=== PATIENT | female | born 2000 | race Asian ===

== ENCOUNTER 2022-10-01 05:05 | Inpatient (IN) ==
[2022-10-01] MEDS ORDERED: LACTATED RINGER'S 1,000 ML IV PRN (05:11)
[2022-10-01] MEDS ORDERED: LIDOCAINE 1% LOCAL 20 ML VIAL INFIL PRN (05:11)
[2022-10-01] MEDS ORDERED: OXYTOCIN 30 UNITS/500 ML BAG IV PRN ×2 (05:11→07:10)
[2022-10-01] MEDS ORDERED: OXYTOCIN 30 UNITS/500ML NSS IV ONE (05:17)
[2022-10-01 05:52] LABS: Hematocrit (blood only) 34.5 % (37.0-47.0); Hemoglobin 12.1 g/dl (12.0-16.0); Mean Corpuscular Hemoglobin 33.3 pg (25.0-34.0); Mean Corpuscular Hgb Conc 35.1 g/dL (32.0-36.0); Mean Platelet Volume 12.9 fL (9.4-12.4); Platelet Count 145 K/uL (130-400); RDW Coefficient of Variation 14.4 % (11.5-14.5); Red Blood Count 3.63 M/uL (4.20-5.40); White Blood Count 12.37 K/ul (4.8-10.8)
--- NOTE | 2022-10-01 06:44 | Delivery Summary ---
Vaginal Delivery Summary Date of Service October 01, 2022 Vaginal Delivery Summary [facility] Patient is a 22-year-old 2 para 1-0-0-1 female who presents at 39-6/7 weeks in active labor. Upon arrival in labor and delivery she was noted to be an anterior lip with bulging membranes. Membranes were ruptured for clear fluid and the anterior lip was then easily reduced. She had the urge to push and did so effectively over intact perineum for delivery of a viable male . After the head was delivered the rest the infant delivered easily without maternal effort and was placed on the mother's abdomen for further attention and drying. He was vigorous and moving all 4 limbs upon delivery. After cord blood was obtained, the placenta was expressed intact with a three-vessel cord. bleeding was controlled with dilute Pitocin and fundal massage. Perineum was inspected and noted to be intact. Estimated blood loss was 300 cc. Her bladder was catheterized using sterile technique for a small amount of clear dilute urine. Mother and infant were doing well after delivery. [facility] – [place] Vaginal Delivery Charge Delivery Type Details: [facility]
[2022-10-01] MEDS ORDERED: bisacodyL 10 MG SUPP PR PRN (07:10)
[2022-10-01] MEDS ORDERED: IBUPROFEN 600 MG TAB PO PRN (07:10)
[2022-10-01] MEDS ORDERED: ACETAMINOPHEN 325 MG TAB PO PRN (07:10)
[2022-10-01] MEDS ORDERED: HYDROCORTISONE ACETATE 25 MG SUPP PR PRN (07:10)
[2022-10-01] MEDS ORDERED: BENZOCAINE 20% AER SPR 82.5 GM CAN EXT PRN (07:10)
[2022-10-01] MEDS ORDERED: DIPHTHERIA/TETANUS/PERTUSSIS Vaccine (Tdap, Age 7+yrs) 0.5mL SYR/VL IM ONE (07:10)
[2022-10-01] MEDS ORDERED: oxyCODONE/ACETAMINOPHEN 5mg/325mg TAB PO PRN (07:10)
[2022-10-01] MEDS: DOCUSATE SODIUM 100 MG CAP PO SCH ×2 (13:23→19:32)
[2022-10-01] MEDS: PRENATAL VITAMIN 1 TAB PO SCH (13:23)
[2022-10-02 07:02] LABS: Hematocrit (blood only) 32.6 % (37.0-47.0); Hemoglobin 11.4 g/dl (12.0-16.0); Mean Corpuscular Hemoglobin 33.5 pg (25.0-34.0); Mean Corpuscular Volume 95.9 fL (80.0-100.0); Mean Platelet Volume 12.5 fL (9.4-12.4); Platelet Count 134 K/uL (130-400); RDW Coefficient of Variation 14.4 % (11.5-14.5); RDW Standard Deviation 50.5 fL (36.4-46.3); White Blood Count 14.95 K/ul (4.8-10.8)
--- NOTE | 2022-10-02 07:03 | Obstetrical Progress Note ---
Date of Service <Lizbeth Baugh DO - Last Filed: 10/02/22 07:59> October 02, 2022 Assessment & Plan <Lizbeth Baugh DO - Last Filed: 10/02/22 07:59> (1) care following vaginal delivery: Feels well today. Eating well, voiding well, ambulating well. Pain well controlled with prn analgesics. Routine care; OOB, ambulation, continue regular diet. After discharge will have 6 week follow-up with Dr. Burdick. <Carmenza Siegel MD, FACOG - Last Filed: 10/02/22 07:39> (1) care following vaginal delivery: Subjective <Lizbeth Baugh DO - Last Filed: 10/02/22 07:59> Pt is a 22 y/o female who is PPD 1 following at 39 3/7 weeks. She is Maltese-speaking only. Translation services via [employer] were used for this en counter. She reports feeling overall well this morning. Denies abdominal cramping and notes 0/10 pain, well managed on analgesics. Voiding. Tolerating meals overnight and able to ambulate on own. She has been passing gas but no bowel movement since delivery. Denies any lochia this morning. Currently breast feeding. Constitutional: no fever, no chills or no sweats Respiratory: no dyspnea Cardiovascular: no chest pain or no palpitations Breast: no breast pain Genitourinary (female): no dysuria Neurologic: no headache(s) no changes in vision, no headaches Physical Exam <Lizbeth Baugh DO - Last Filed: 10/02/22 07:59> General: Alert, oriented. No acute distress. Cardiac: Regular rate and rhythm, no murmurs, rubs, or gallops. Respiratory: Clear to auscultation bilaterally a/p, no wheezes/rales/rhonchi. No increased work of breathing. Symmetrical chest rise. No respiratory distress. Abdomen: Soft, nontender, nondistended. Bowel sounds present. Uterus: Uterine fundus firm. Lower extremities: No lower extremity edema or swelling. No deep calf pain. Srikanth's negative bilaterally. Results & Data <Lizbeth Baugh DO - Last Filed: 10/02/22 07:59> Vital Signs (Past 12 Hours) Vital Signs Temp Pulse Resp BP BP Pulse Ox O2 Del Method 10/02/22 04:00 36.6 C 74 18 109/71 96 Room Air 10/02/22 00:15 36.8 C 72 16 112/75 97 Room Air 10/01/22 19:41 37 C 80 16 115/72 98 Room Air <Carmenza Siegel MD, FACOG - Last Filed: 10/02/22 07:39> Co-Signing Physician Notes Resident Physician Supervision Note: I was present with Dr. Baugh during the history and exam. I discussed the case with the resident and agree with the findings and plan as documented in the note. Any exceptions or clarifications are listed here: [None] Documented By: Carmenza Siegel MD, FACOG Resident Activity Tracking <Lizbeth Baugh DO - Last Filed: 10/02/22 07:59> Resident Involvement: Resident Care Provided Care Provided: OB Delivery
[2022-10-02] MEDS: DOCUSATE SODIUM 100 MG CAP PO SCH (07:57)
[2022-10-02] MEDS: PRENATAL VITAMIN 1 TAB PO SCH (07:57)
[2022-10-02] MEDS ORDERED: bisacodyL 5 MG TABEC PO SCH (20:00)
== END 2022-10-02 15:00 | disposition home or self-care (01) | DRG 807 ==
LOC: OPB 05:05 → 4S1 05:10 → 4E2 08:58

== ENCOUNTER 2025-02-09 21:10 | Inpatient (IN) ==
[2025-02-09] MEDS: OXYTOCIN 10 UNITS/ML VIAL IM ONE (21:30)
--- NOTE | 2025-02-09 21:54 | History & Physical Report ---
Date of Service February 09, 2025 Assessment & Plan (1) Labor, precipitous, delivered: Plan: Pt is a 24 yo female at 40w3d who admitted for spontaneous labor. Complete with SROM upon admission Rh pos, RI, GBS neg Anticipate Admission and Anticipated Discharge Date Admission Date: February 09, 2025 History of Present Illness Chief Complaint: contractions Primary Care Provider: NO PCP Pt is a 24 yo female at 40w3d who presents in spontaneous labor. Her contractions started this morning and got progressively closer and stronger. Denies other concerns. complicated by late care, hep B non-immune, anemia. Allergies Allergy/AdvReac Type Severity Reaction Status Date / Time No Known Allergies Allergy Verified 02/03/25 10:45 Home Medications Medication Instructions Recorded Confirmed Type vitamins no.180-ferrous 1 tab PO DAILY #30 tabs 09/14/24 02/03/25 Rx fumarate 27 mg-folic acid 1 mg tablet ( Plus Vitamin-Mineral) Patient History Medical History (Updated 02/09/25 @ 21:52 by Olga Cueva MD) Labor, precipitous, delivered care following vaginal delivery No known health problems Surgical History No history of previous surgery Family History Denies family history of Ovarian cancer Breast cancer Colorectal cancer Social History Smoking Status: Never smoker Second Hand Exposure: No; Do You Dip or Chew Tobacco: No; Hx Alcohol Use: No Hx Substance Use: No Preferred Language: Swedish Communication Tools: IP[employer] Market Manager Required: Yes Beliefs That Will Affect Care: None marital status: marital status details: Kaitlin (32) [phone] Current Living Situation: Spouse and Family Current Living Situation Comment: lives with , 2 children current occupational status: employed current occupation: [employer] Feels Safe at Home: Yes Assistive Devices: None Review of Systems All systems reviewed & are unremarkable except as noted in HPI & below Physical Exam Constitutional: WD/WN, vitals as above healthy appearing and + in distress (with contractions) Respiratory: normal respiratory effort Psychiatric: Orientation: alert and oriented x 3 Genitourinary: Manual OB Exam: + cervical dilation (10), + cervical effacement 100%, + station + 1 and + amniotic fluid clear OB Exam Monitor Tracing: + external FHT monitor used, + external uterine monitor used and + category I Results & Data Vital Signs (Past 12 Hours) Vital Signs Temp Pulse Resp BP 02/09/25 21:40 71 112/61 02/09/25 21:37 78 108/59 L 02/09/25 21:30 18 02/09/25 21:30 36.9 C 18 02/09/25 21:16 88 112/61 Coding Level of Care Code None Diagnoses Labor, precipitous, delivered O62.3
--- NOTE | 2025-02-09 21:57 | Delivery Summary ---
Vaginal Delivery Summary Date of Service February 09, [address] [facility] Pre-delivery diagnoses: IUP at 40 weeks 3 days Post-delivery diagnoses: Same Procedure: Spontaneous vaginal delivery Surgeon: Olga Cueva MD Complications: none Findings: Viable female . Apgars: 8/9. Weight pending, please see nursery records Estimated QBL: 55 cc Description of delivery: The patient progressed to complete without anesthesia shortly after arrival to unit. She then began to push. She spontaneously vaginally delivered a viable from the cephalic presentation. The head delivered followed by the anterior shoulder, posterior shoulder, and the body. Loose nuchal x1 reduced. The baby was placed on mother's abdomen and a spontaneous cry was heard. Delayed cord clamping was employed, and the cord was doubly clamped and cut. Cord blood was obtained. The placenta was delivered spontaneously intact with a 3-vessel cord. The uterus was not swept due to patient being unblocked. IM pitocin was given since patient did not have an IV yet. The uterus became firm. The vagina and perineum were inspected. No lacerations required repair. Excellent hemostasis was observed. The mother and baby are recovering in stable and good condition in the room. Sponge, needle and instrument counts were correct x 2. [facility] Vaginal Delivery Charge Delivery Type Details: [facility]
[2025-02-09] MEDS ORDERED: LIDOCAINE 1% LOCAL 20 ML VIAL INFIL PRN (22:11)
[2025-02-09] MEDS ORDERED: OXYTOCIN 30 UNITS/NSS 30 UNITS/500 ML BAG IV PRN ×2 (22:11)
[2025-02-09] MEDS ORDERED: HYDROCORTISONE ACETATE 25 MG SUPP PR PRN (22:11)
[2025-02-09] MEDS ORDERED: CALCIUM CARBONATE 500 MG CHEWABLE TAB PO PRN (22:11)
[2025-02-09] MEDS ORDERED: ACETAMINOPHEN 325 MG TAB PO PRN (22:11)
[2025-02-09] MEDS: DIPHTHER/TETAN/PERTUS Vaccine (Tdap, Adol/Adult) 0.5mL IM ONE (22:39)
[2025-02-09 23:04] LABS: Hematocrit (blood only) 38.1 % (37.0-47.0); Hemoglobin 13.1 g/dL (12.0-16.0); Mean Corpuscular Hemoglobin 33.4 pg (25.0-34.0); Mean Corpuscular Volume 97.2 fL (80.0-100.0); Platelet Count 180 K/uL (130-400); RDW Standard Deviation 51.6 fL (36.4-46.3); Red Blood Count 3.92 M/uL (4.20-5.40); White Blood Count 14.04 K/ul (4.8-10.8)
[2025-02-09] MEDS: BENZOCAINE 20% SPRY 85 APPLN/85 GM CAN EXT PRN (23:45)
[2025-02-10] MEDS: IBUPROFEN 600 MG TAB PO PRN (02:14)
--- NOTE | 2025-02-10 06:03 | Obstetrical Progress Note ---
Date of Service February 10, 2025 Assessment & Plan (1) care following vaginal delivery: Plan 24 yo post- day 1 s/p Feels well today. Vital signs stable Continue post- care Encourage ambulation and Pain controlled with ibuprofen Hgb stable Potential discharge late tonight, patient would like to speak with first Admission and Anticipated Discharge Date Admission Date: February 09, 2025 Supervising Physician Co-Signing Physician Notes Resident Physician Supervision Note: I interviewed and examined the patient. Discussed with Dr. Barry and agree with findings and plan as documented in the note. Any exceptions or clarifications are listed here: PPD#1 from unmedicated . Doing well. Pain controlled and meeting milestones. . Uterus firm at umbilicus. Delivered late last night but is still considering DC home this evening, wants to talk to first. Continue routine care. Documented By: Olga Cueva MD Subjective 24 yo post- day 1 s/p Ambulation: ambulating normally Voiding: no voiding problems Passing Gas:: Yes Passing Stool:: Yes Diet Tolerance:: regular diet Lochia:: Small Feeding Type:: breast feeding Current Pain Level: 5/10 Resting comfortably this AM in NAD. Denies OCONNELL, CP, SOB, N/V/D, LE pain/swelling. Review of Systems Review of Systems: All systems reviewed & are unremarkable except as noted in HPI & below Physical Exam Physical Exam: General: patient resting comfortably, NAD, non-toxic in appearance, AA&O x 4, answers questions appropriately. Skin: warm, dry, intact HEENT: NC/AT, anicteric sclera, conjunctiva without injection, moist mucus membranes. Heart: +S1/S2, regular, no m/r/g Lungs: equal air entry bilaterally, no rales/rhonchi/wheezes Abd: +BS, soft, NT/ND, uterine fundus firm at umbilicus Ext: warm, no clubbing/cyanosis or edema, Srikanth's neg. Neuro: nonfocal, patient AA&O x 4, speech intact, no facial droop, moving all extremities on command. Results & Data Vital Signs (Past 12 Hours) Vital Signs Temp Pulse Pulse Resp BP BP Pulse Ox 02/10/25 03:29 36.9 C 77 18 99/64 L 96 02/10/25 00:03 37.0 C 78 18 118/70 97 02/09/25 23:14 78 104/66 02/09/25 22:44 76 109/62 02/09/25 22:40 66 117/68 02/09/25 22:25 83 113/69 02/09/25 22:10 78 110/64 02/09/25 21:55 71 119/68 02/09/25 21:40 71 112/61 02/09/25 21:37 78 108/59 L 02/09/25 21:30 18 02/09/25 21:30 36.9 C 18 02/09/25 21:16 88 112/61 O2 Del Method 02/10/25 03:29 Room Air 02/10/25 00:03 Room Air 02/09/25 23:14 02/09/25 22:44 02/09/25 22:40 02/09/25 22:25 02/09/25 22:10 02/09/25 21:55 02/09/25 21:40 02/09/25 21:37 02/09/25 21:30 02/09/25 21:30 02/09/25 21:16 Laboratory Results OB Labs: Blood Type O Positive 09/16/24 Antibody Screen NEGATIVE 09/16/24 Hgb 10.0 g/dl (12.0-16.0) L 11/27/24 Hct 30.2 % (37.0-47.0) L 11/27/24 MCV 97.8 fL (80.0-100.0) 09/16/24 Plt Count 261 K/uL (130-400) 09/16/24 Rubella IgG Antibody Immune (Immune) 09/16/24 RPR Nonreactive (Nonreactive) 09/19/22 Treponema pallidum Ab Negative (Negative) 11/27/24 Hep Bs Antigen Negative (Negative) 09/16/24 Hep Bs Antigen NON-REACTIVE (NON-REACTIVE) 09/19/22 Hepatitis C Antibody Negative (Negative) 09/16/24 Hepatitis C Ab (EIA) NON-REACTIVE (NON-REACTIVE) 09/19/22 HIV 1&2 Ab/P24 Ag 4thGn Negative (Negative) 09/16/24 HIV (1&2) Ag & Ab Conf NON-REACTIVE (NON-REACTIVE) 09/19/22 Glucose 1 Hr 50 gm 104 mg/dl (70-130) 11/27/24 OB Optional Labs: Chlamydia trachomatis RNA Not Detected (NotDetected) 09/16/24 Neisseria gonorrhoeae RNA Not Detected (NotDetected) 09/16/24 Resident Activity Tracking Resident Involvement: Resident Care Provided Care Provided: OB Delivery
[2025-02-10] MEDS: PRENATAL VITAMIN 1 TAB PO SCH (07:24)
[2025-02-10] MEDS: DOCUSATE SODIUM 100 MG CAP PO SCH (07:24)
--- NOTE | 2025-02-11 05:54 | Obstetrical Progress Note ---
Date of Service February 11, 2025 Assessment & Plan (1) care following vaginal delivery: Plan 24 yo post- day 2 s/p Feels well today. Vital signs stable Continue post- care Encourage ambulation and Pain controlled with ibuprofen Hgb stable Discharge today, follow up in [address] Cueva for visit Admission and Anticipated Discharge Date Admission Date: February 09, 2025 Supervising Physician Co-Signing Physician Notes Resident Physician Supervision Note: I interviewed and examined the patient. Discussed with Dr. Barry and agree with findings and plan as documented in the note. Any exceptions or clarifications are listed here: [ ] Documented By: Ghada Hernandez MD, FACOG, MSCP Subjective 24 yo post- day 2 s/p Ambulation: ambulating normally Voiding: no voiding problems Passing Gas:: Yes Passing Stool:: Yes Diet Tolerance:: regular diet Lochia:: Small Feeding Type:: breast feeding Current Pain Level: 4/10 Resting comfortably this AM in NAD. Denies OCONNELL, CP, SOB, N/V/D, LE pain/swelling. Review of Systems Review of Systems: All systems reviewed & are unremarkable except as noted in HPI & below Physical Exam Physical Exam: General: patient resting comfortably, NAD, non-toxic in appearance, AA&O x 4, answers questions appropriately. Skin: warm, dry, intact HEENT: NC/AT, anicteric sclera, conjunctiva without injection, moist mucus membranes. Heart: +S1/S2, regular, no m/r/g Lungs: equal air entry bilaterally, no rales/rhonchi/wheezes Abd: +BS, soft, NT/ND, uterine fundus firm 1 FB below umbilicus Ext: warm, no clubbing/cyanosis or edema, Srikanth's neg. Neuro: nonfocal, patient AA&O x 4, speech intact, no facial droop, moving all extremities on command. Results & Data Vital Signs (Past 12 Hours) Vital Signs Temp Pulse Resp BP Pulse Ox O2 Del Method 02/11/25 00:00 36.7 C 71 18 102/66 97 Room Air 02/10/25 19:19 36.7 C 74 18 103/72 97 Room Air Laboratory Results OB Labs: Blood Type O Positive 09/16/24 Antibody Screen NEGATIVE 09/16/24 Hgb 10.5 g/dl (12.0-16.0) L 12/25/24 Hct 31.4 % (37.0-47.0) L 12/25/24 MCV 97.8 fL (80.0-100.0) 09/16/24 Plt Count 261 K/uL (130-400) 09/16/24 Rubella IgG Antibody Immune (Immune) 09/16/24 RPR Nonreactive (Nonreactive) 09/19/22 Treponema pallidum Ab Negative (Negative) 11/27/24 Hep Bs Antigen Negative (Negative) 09/16/24 Hep Bs Antigen NON-REACTIVE (NON-REACTIVE) 09/19/22 Hepatitis C Antibody Negative (Negative) 09/16/24 Hepatitis C Ab (EIA) NON-REACTIVE (NON-REACTIVE) 09/19/22 HIV 1&2 Ab/P24 Ag 4thGn Negative (Negative) 09/16/24 HIV (1&2) Ag & Ab Conf NON-REACTIVE (NON-REACTIVE) 09/19/22 Glucose 1 Hr 50 gm 104 mg/dl (70-130) 11/27/24 OB Optional Labs: Chlamydia trachomatis RNA Not Detected (NotDetected) 09/16/24 Neisseria gonorrhoeae RNA Not Detected (NotDetected) 09/16/24 Resident Activity Tracking Resident Involvement: Resident Care Provided Care Provided: OB Delivery
[2025-02-11 07:44] VITALS: BP 107/72; PULSE 74; RESP 17; TEMP 97.9; O2SAT 99
== END 2025-02-11 12:26 | disposition home or self-care (01) | DRG 807 ==
LOC: OPB 21:10 → 4S1 21:13 → 4E2 02-10